=== PATIENT | female | born 1930 | race African-American/Black ===

== ENCOUNTER 2018-01-27 04:03 | Emergency (ER) | payer OTHER ==
[~2018-01-27] VITALS: Ht 167.6 cm; Wt 84.0 kg
[~2018-01-27 04:03] MED LIST: ASPI-1159; HYDROCLOROTHIAZIDE; K-TABS; PRAV40TA; VERA180T14 PO
[2018-01-27] MEDS ORDERED: LORAZEPAM 1MG TABLET PO ONE (04:30)
[2018-01-27 05:52] LABS: BASOPHILS % 0.3 % (0.0-2.0); EOSINOPHILS % 0.6 % (0.0-5.0); HEMATOCRIT. 41.2 % (36.0-48.0); HEMOGLOBIN. 13.8 g/dL (12.0-16.0); LYMPHOCYTES % 24.6 % (20.0-50.0); MEAN CORPUSCULAR HEMOGLOBIN 28.8 pg (28.0-32.0); MEAN CORPUSCULAR VOLUME 86.4 fL (81.0-99.0); MONOCYTES % 9.5 % (2.0-8.0); PLATELET 254 x1000/uL (130-400); RED BLOOD CELL COUNT 4.77 mill/uL (4.2-5.4); RED CELL DISTRIBUTION WIDTH 14.9 % (11.6-14.6)
[2018-01-27 05:53] LABS: CLARITY URINE CLEAR (CLEAR); COLOR URINE YELLOW (YELLOW); KETONES URINE NEGATIVE (NEGATIVE); LEUKOCYTE ESTERASE URINE 1+ (NEGATIVE); NITRITE URINE NEGATIVE (NEGATIVE); OCCULT BLOOD URINE TRACE (NEGATIVE); PROTEIN URINE NEGATIVE (NEGATIVE); SPECIFIC GRAVITY URINE 1.006 (1.005-1.030); UROBILINOGEN URINE 0.2 E.U./dL (0.2-1.0)
[2018-01-27 05:55] LABS: CHLORIDE 104 mEq/L (98-107)
[2018-01-27 06:11] VITALS: BP 81/58
== END 2018-01-27 06:31 | disposition home or self-care (01) ==
LOC: ER 04:03
DX: I16.0 Hypertensive urgency (principal); N30.00 Acute cystitis without hematuria; R45.1 Restlessness and agitation; R00.0 Tachycardia, unspecified; E11.9 Type 2 diabetes mellitus without complications; Z85.3 Personal history of malignant neoplasm of breast; Z79.899 Other long term (current) drug therapy
CPT/HCPCS: 36415; 80053; 81003; 85025; 93005; 99291